=== PATIENT | male | born 1975 | race Caucasian/White ===

== ENCOUNTER 2021-10-16 10:46 | Inpatient (IN) | payer BC ==
[~2021-10-16] VITALS: Ht 177.8 cm; Wt 67.4 kg
[~2021-10-16 10:46] MED LIST: HYDMOR2 PO; MECL25 PO
[2021-10-16 11:46] LABS: BASOPHILS ABSOLUTE AUTO 0.09 K/mm3 (0.00-0.23); BASOPHILS PERCENT AUTO 2 % (0-2); EOSINOPHILS ABSOLUTE AUTO 0.09 K/mm3 (0.00-0.68); EOSINOPHILS PERCENT AUTO 2 % (0-6); Hematocrit 25.3 % (37.0-53.0); Hemoglobin 7.3 g/dL (13.5-17.5); IMMATURE GRAN ABSOLUTE AUTO 0.01 K/mm3 (0.00-0.10); IMMATURE GRAN PERCENT AUTO 0 % (0-1); LYMPHOCYTES ABSOLUTE AUTO 0.75 K/mm3 (0.84-5.20); LYMPHOCYTES PERCENT AUTO 19 % (21-46); MONOCYTES ABSOLUTE AUTO 0.45 K/mm3 (0.16-1.47); MONOCYTES PERCENT AUTO 11 % (4-13); Mean Corpuscular HGB 20.2 pg (26.0-34.0); Mean Corpuscular HGB Conc 28.9 g/dL (31.5-36.5); Mean Corpuscular Volume 70 fL (80-100); NEUTROPHILS ABSOLUTE AUTO 2.58 K/mm3 (1.96-9.15); NEUTROPHILS PERCENT AUTO 65 % (41-73); Platelet Count 80 K/mm3 (150-400); RDW Coefficient Variation 20.9 % (11.7-14.2); RDW Standard Deviation 51.7 fL (35.1-46.3); Red Blood Cell Count 3.61 M/mm3 (4.30-5.90); White Blood Cell Count 3.97 K/mm3 (4.00-11.30)
[2021-10-16 12:10] LABS: Alanine Aminotransfer (ALT/SGP 132 U/L (12-78); Albumin, Blood 3.6 g/dL (3.4-5.0); Albumin/Globulin Ratio 1.1 (0.8-1.8); Alk Phos 114 U/L (50-136); Anion Gap 13 mmol/L (6-16); Aspartate Aminotrans (AST/SGOT 146 U/L (12-37); Bilirubin, Total 0.6 mg/dL (0.1-1.0); Blood Urea Nitrogen 9 mg/dL (8-24); Bun/Creatinine Ratio 12.6 (12.0-20.0); CO2, Blood 23 mmol/L (21-32); Calcium, Blood 8.8 mg/dL (8.5-10.1); Chloride, Blood 105 mmol/L (98-108); Creatinine, Blood 0.71 mg/dL (0.60-1.20); Globulin, Blood 3.3 g/dL (2.2-4.0); Glomerular Filtration Rate >60 (60-); Glucose, Blood 77 mg/dL (70-99); Potassium, Blood 4.3 mmol/L (3.5-5.5); Sodium, Blood 141 mmol/L (136-145); Total Protein, Blood 6.9 g/dL (6.4-8.2)
[2021-10-16 17:12] LABS: International Normalized Ratio 1.03; Prothrombin Time Results 10.8 Sec (9.7-11.5)
[2021-10-16 19:42] LABS: Influenza A, PCR NEGATIVE (NEGATIVE); Influenza B, PCR NEGATIVE (NEGATIVE); Resp Syncytial Virus, PCR NEGATIVE (NEGATIVE); SARS-Cov-2 (COVID-19) PCR, MMC NEGATIVE (NEGATIVE)
[2021-10-16 20:28] LABS: Hematocrit 22.7 % (37.0-53.0); Hemoglobin 6.7 g/dL (13.5-17.5)
--- NOTE | 2021-10-16 23:45 | NUR ---
PT IS ALERT AND ORIENTED AN ADMISSION FROM THE ER, HE WAS KEPT COMFORTABLE. ASSESSMENT DONE AND DOCUMENTED. NO SKIN ISSUES NOTED. GI CONSULTED FOR THE PT. HE REVIEWED THE PT AND ALSO ORDERED 1 UNIT OF BLOOD TRANSFUSION, PLACED PT ON CLEAR LIQIUD DIET FOR NOW. HIS VITALS WERE CHECKED AND RECORDED. BLOOD INFORMED CONSENT GOTTEN, THE BLOOD WAS ISSUED AND WE STARTED THE BLOOD TRANSFUSION. PT LODGED IN NO COMPLAINT. WILL CONTINUE TO MONITOR HIM.
[2021-10-17 06:01] LABS: Alanine Aminotransfer (ALT/SGP 93 U/L (12-78); Alk Phos 85 U/L (50-136); Anion Gap 9 mmol/L (6-16); Aspartate Aminotrans (AST/SGOT 65 U/L (12-37); Bilirubin, Total 1.4 mg/dL (0.1-1.0); Blood Urea Nitrogen 12 mg/dL (8-24); Bun/Creatinine Ratio 15.3 (12.0-20.0); CO2, Blood 27 mmol/L (21-32); Calcium, Blood 8.4 mg/dL (8.5-10.1); Chloride, Blood 103 mmol/L (98-108); Creatinine, Blood 0.78 mg/dL (0.60-1.20); Ferritin, Serum 7 ng/mL (26-388); Glomerular Filtration Rate >60 (60-); Glucose, Blood 76 mg/dL (70-99); Iron Serum 58 ug/dL (65-175); Percent Saturation 15.5 % (20.0-50.0); Potassium, Blood 4.2 mmol/L (3.5-5.5); Sodium, Blood 139 mmol/L (136-145); Total Iron Binding Capacity 374 ug/dL (250-450)
[2021-10-17 08:19] LABS: Hematocrit 24.7 % (37.0-53.0); Hemoglobin 7.3 g/dL (13.5-17.5); Mean Corpuscular HGB 20.7 pg (26.0-34.0); Mean Corpuscular HGB Conc 29.6 g/dL (31.5-36.5); Mean Corpuscular Volume 70 fL (80-100); Platelet Count 59 K/mm3 (150-400); RDW Coefficient Variation 20.1 % (11.7-14.2); RDW Standard Deviation 50.8 fL (35.1-46.3); Red Blood Cell Count 3.53 M/mm3 (4.30-5.90); White Blood Cell Count 3.29 K/mm3 (4.00-11.30)
[2021-10-17 15:00] LABS: Hematocrit 25.4 % (37.0-53.0); Hemoglobin 7.4 g/dL (13.5-17.5)
[2021-10-17 15:06] LABS: IMMATURE RETIC FRACTION 26.7 % (2.3-16.0); RETICULOCYTE ABSOLUTE 0.0566 M/mm3 (0.0200-0.1100); RETICULOCYTE COUNT PERCENT 1.59 % (0.50-2.50)
--- NOTE | 2021-10-17 18:27 | NUR ---
TO SDS ADMISSION TO UNIT STARTED VSS ELEVATED BP WILL RECHECK GIVEN CONCENT TO READ TO SIGN WHEN DR IS PRESENT.
--- NOTE | 2021-10-17 18:35 | NUR ---
SHIFT SUMMARY PT HAS BEEN INDEPENDENT IN ROOM THROUGH DAY. COLONOSCOPY PREP STARTED LATE THIS MORNING AND PT COMPLETED IT AT 1355. MD NOTIFIED AND PT NPO AFTER THAT. VIEWED AND CLEAR BUT BLOODY DISCHARGE AFTER PREP COMPLETED. NO S/S OF WITHDRAWAL. NOTIFIED PT OF POTENTIAL S/S OF WITHDRAWAL SO HE COULD BE AWARE OF POTENTIAL SYMPTOMS STARTIING. HAS DENIED PAIN DURING THE DAY. DAY SURGERY HERE TO PICK PT UP AT 1815 FOR SCOPE.
--- NOTE | 2021-10-17 19:22 | NUR ---
10/17/211921 Francis Dimas PATIENT DETERMINED TO BE ASA APPROPRIATE FOR PROPOFOL SEDATION PRIOR TO START OF PROCEDURE BY DR. RUTH 3-LEAD EKG REVIEWED WITH PHYSICIAN PRIOR TO START OF PROCEDURE. Patient to ENDO 1. MONITOR INTACT WITH CONTINUOUS PULSE OXIMETRY AND INTERMITTENT BP. O2 VIA N/C INTACT THROUGHOUT SEDATION/PROCEDURE. History, Chart, Medications and Allergies reviewed before start of procedure.
--- NOTE | 2021-10-18 04:10 | NUR ---
SUMMARY PT ARRIVED BACK TO ROOM FROM PROCEDURE IN NO DISTRESS. PT DIET ADVANCED TO REGULAR PER DR RUTH. PT DENIES PAIN OR DISCOMFORT. PT HAS NO NOTED BLEEDING OR DARK STOOLS. PT CURRENTLY SLEEPING IN NO DISTRESS. CALL LIGHT IN REACH.
[2021-10-18 05:19] LABS: Hematocrit 22.3 % (37.0-53.0); Hemoglobin 6.6 g/dL (13.5-17.5); Mean Corpuscular HGB 20.8 pg (26.0-34.0); Mean Corpuscular HGB Conc 29.6 g/dL (31.5-36.5); Mean Corpuscular Volume 70 fL (80-100); Platelet Count 61 K/mm3 (150-400); RDW Standard Deviation 50.1 fL (35.1-46.3); Red Blood Cell Count 3.17 M/mm3 (4.30-5.90); White Blood Cell Count 3.52 K/mm3 (4.00-11.30)
[2021-10-18 05:55] LABS: Alanine Aminotransfer (ALT/SGP 75 U/L (12-78); Albumin, Blood 2.9 g/dL (3.4-5.0); Alk Phos 73 U/L (50-136); Anion Gap 8 mmol/L (6-16); Aspartate Aminotrans (AST/SGOT 59 U/L (12-37); Bilirubin, Total 0.5 mg/dL (0.1-1.0); Blood Urea Nitrogen 6 mg/dL (8-24); Bun/Creatinine Ratio 8.2 (12.0-20.0); CO2, Blood 26 mmol/L (21-32); Calcium, Blood 8.2 mg/dL (8.5-10.1); Chloride, Blood 105 mmol/L (98-108); Creatinine, Blood 0.73 mg/dL (0.60-1.20); Globulin, Blood 2.8 g/dL (2.2-4.0); Glomerular Filtration Rate >60 (60-); Glucose, Blood 88 mg/dL (70-99); Sodium, Blood 139 mmol/L (136-145); Total Protein, Blood 5.7 g/dL (6.4-8.2)
[2021-10-18 12:11] LABS: Hematocrit 24.8 % (37.0-53.0); Hemoglobin 7.6 g/dL (13.5-17.5)
--- NOTE | 2021-10-18 16:45 | NUR ---
PLEASANT 46 YR OLD MALE. HGB HAD DROPED FROM 7.4 YESTERDAY AFTERNOON TO 6.6 THIS AM. 1 UNIT PRB ORDERED AND ADMINISTERED. PT TOLERATED WELL. FOLLOW UP HGB OF 7.6. SECOND UNIT WAS ORDERED AND PLACED ON HOLD BY . ORDER TO MOITOR TONIGHT AND REEVALUATE NEED FOR PRB IN MORINING. ALERT AND ORIENTED X4, INDEPENDENT IN ROOM. MEDS TAKEN WHOLE. PT ON RA. CALL LIGHT WITHIN REACH.
--- NOTE | 2021-10-19 03:39 | NUR ---
SHIFT REPORT PT A&O X4. IV ACCESS IN RIGHT AC AND LEFT HAND. INDPENDENT IN ROOM TO BATHROOM. REGULAR DIET. ROOM AIR. VSS. AFTER 0600, ICE CHIPS ONLY DUE TO PLANNED EGD TO EVALUATE FOR VARICES. BLEEDING HEMMORHOIDS NOTED. HX OF ETOH ABUSE. NO SEIZURE ACTIVITY, TREMORS OR HALLUCINATIONS NOTED. NO ACUTE CHANGES OVERNIGHT.
[2021-10-19 05:24] LABS: BASOPHILS ABSOLUTE AUTO 0.07 K/mm3 (0.00-0.23); BASOPHILS PERCENT AUTO 2 % (0-2); EOSINOPHILS ABSOLUTE AUTO 0.21 K/mm3 (0.00-0.68); EOSINOPHILS PERCENT AUTO 5 % (0-6); Hematocrit 25.5 % (37.0-53.0); Hemoglobin 7.7 g/dL (13.5-17.5); IMMATURE GRAN ABSOLUTE AUTO 0.01 K/mm3 (0.00-0.10); IMMATURE GRAN PERCENT AUTO 0 % (0-1); LYMPHOCYTES ABSOLUTE AUTO 1.33 K/mm3 (0.84-5.20); LYMPHOCYTES PERCENT AUTO 28 % (21-46); MONOCYTES ABSOLUTE AUTO 0.54 K/mm3 (0.16-1.47); MONOCYTES PERCENT AUTO 12 % (4-13); Mean Corpuscular HGB 22.1 pg (26.0-34.0); Mean Corpuscular HGB Conc 30.2 g/dL (31.5-36.5); Mean Corpuscular Volume 73 fL (80-100); NEUTROPHILS ABSOLUTE AUTO 2.54 K/mm3 (1.96-9.15); NEUTROPHILS PERCENT AUTO 54 % (41-73); Platelet Count 76 K/mm3 (150-400); RDW Coefficient Variation 20.4 % (11.7-14.2); RDW Standard Deviation 53.1 fL (35.1-46.3); Red Blood Cell Count 3.49 M/mm3 (4.30-5.90)
[2021-10-19 06:33] LABS: Alanine Aminotransfer (ALT/SGP 84 U/L (12-78); Albumin, Blood 2.9 g/dL (3.4-5.0); Alk Phos 78 U/L (50-136); Anion Gap 7 mmol/L (6-16); Aspartate Aminotrans (AST/SGOT 61 U/L (12-37); Bilirubin, Total 0.5 mg/dL (0.1-1.0); Blood Urea Nitrogen 10 mg/dL (8-24); Bun/Creatinine Ratio 11.5 (12.0-20.0); CO2, Blood 25 mmol/L (21-32); Calcium, Blood 8.7 mg/dL (8.5-10.1); Chloride, Blood 109 mmol/L (98-108); Creatinine, Blood 0.87 mg/dL (0.60-1.20); Glomerular Filtration Rate >60 (60-); Glucose, Blood 101 mg/dL (70-99); Sodium, Blood 141 mmol/L (136-145); Total Protein, Blood 5.9 g/dL (6.4-8.2)
[2021-10-19 14:28] LABS: Hematocrit 25.6 % (37.0-53.0); Hemoglobin 7.8 g/dL (13.5-17.5)
--- NOTE | 2021-10-19 14:41 | NUR ---
PT OFF THE FLOOR FOR PROCEDURE. TRANSFERED FOR EGD, IV SALINE LOCKED.
--- NOTE | 2021-10-19 14:57 | NUR ---
PT ARRIVED IN SDS WITH TWO IV'S. RIGHT FOREARM IV APPEARS TO BE INFLAMED, EDEMATOUS, WITH DARK PURPLE AND RED BRUISING THAT SPANS 3 INCHES IN LENGTH AND 2 INCHES WIDE. THE SITE IS WARM TO THE TOUCH AND THERE WAS DRIED SEROSANGUINEOUS FLUID AT THE BASE OF THE WINDOW BANDAGE. THE WINDOW BANDAGE WAS ALSO WET NEAR THE HUB OF THE IV AND LIFTING. PT REPORTS A 2/10 CONSTANT BURNING PAIN, AND STATES PAIN UPON TOUCH. THIS IV WAS REMOVED.
--- NOTE | 2021-10-19 15:25 | NUR ---
DR. RUTH SHOWN PATIENT'S INFLITRATION SITE WHERE IV ON RIGHT FOREARM WAS REMOVED. PT TALKED ABOUT HOW HE ALERTED TWO OTHER NURSES THAT "SOMETHING WAS WRONG" AND THAT HIS RIGHT ARM IV HURT AND STATED HE NOTICED A "BUBBLE" FORMING NEAR THE INSERTION SITE THAT HE THOUGHT WAS ABNORMAL.
--- NOTE | 2021-10-19 16:53 | NUR ---
DAY SHIFT SUMMARY. PLEASANT 46 YR OLD MALE. INDEPENDENT IN ROOM. CONTIUIOUS FLUIDS RUNNING TODAY. EGD SCHEDULED. PT CURRENTLY STILL OFF FLOOR FOR EGD. NPO PRIOR TO PROCEDURE. ROOM AIR AND MEDS WHOLE.
--- NOTE | 2021-10-19 18:44 | NUR ---
10/19/21 1844 Francis Dimas PATIENT DETERMINED TO BE ASA APPROPRIATE FOR PROPOFOL SEDATION PRIOR TO START OF PROCEDURE BY DR. RUTH. E
--- NOTE | 2021-10-19 19:38 | NUR ---
ASSUMPTION OF CARE 1900: PT RETURNED TO FLOOR FROM OR PROCEDURE, EGD. PT AMBULATING WITH STAND BY ASSISTANCE FROM 1 STAFF MEMBER FROM OR [facility] TO MEDICAL BED. THIS RN RECEIVED REPORT FROM DAY SURGERY NURSE. PT RECEIVED 200 MG PROPOFOL, 2 MG VERSED AND 350 ML OF LACTATED RINGERS. OK TO RESUME REGULAR DIET. PT IS AWAKE/ALERT, EATING TURKEY SANDWICH AND SPEAKING TO SPOUSE ON THE PHONE. BED IN LOWEST POSITION, CALL LIGHT WTIHIN REACH. WILL CONTINUE TO MONITOR.
--- NOTE | 2021-10-20 04:46 | NUR ---
SHIFT SUMMARY PT ADMITTED FOR ACUTE GI BLEED. HAD EGD COMPLETED YESTERDAY. PLAN IS TO D/C TO HOME TODAY. IV ACCESS IN LEFT WRIST, INFUSING LACTATED RINGERS. INDEPENDENT IN ROOM TO BATHROOM. A&O X4. REGULAR DIET. BED IN LOWEST POSITION, CALL LIGHT WITHIN REACH. NO ACUTE CHANGES THIS SHIFT. PT REMAINED AWAKE UNTIL 0200, WATCHING TELEVISION. NO COMPLAINTS OF PAIN OR DISCOMFORT. EAGER TO D/C HOME.
[2021-10-20 04:59] LABS: Hematocrit 26.6 % (37.0-53.0); Hemoglobin 7.8 g/dL (13.5-17.5)
[2021-10-20] MEDS ORDERED: NICO21TP TOP (11:19)
[2021-10-20] MEDS ORDERED: FERSU300 PO (11:20)
[2021-10-20] MEDS ORDERED: MIRALAX17 GM PO (11:21)
[2021-10-20] MEDS ORDERED: ACAMPROSATE CA333 MG PO (13:03)
--- NOTE | 2021-10-20 14:17 | NUR ---
DISCHARGE PATIENT TRANSPORTED VIA WHEELCHAIR TO PRIVATE VEHICLE. DISCHARGE INFORMATION EXPLAINED TO PATIENT. PATIENT STATED UNDERSTANDING. PACKET SENT WITH PATIENT. IV REMOVED WITHOUT DIFFICULTY. BELONGINGS SENT WITH PATIENT. MEDICATIONS FAXED TO PERFERRED PHARMACY. FOLLOW UP WITH GI AND PCP TO BE CALLED IN BY PATIENT.
== END 2021-10-20 14:09 | disposition home or self-care (01) | DRG 394 ==
LOC: ER 10:46 → MEDS 10:47 → ERHOLD 10:47 → MEDS 19:46
PROVIDERS: Emergency Medicine; Family Medicine; Internal Medicine Gastroenterology; Physician Assistant; ADMIT Hospitalist
PROC: 30233N1 Transfusion of Nonautologous Red Blood Cells into Peripheral Vein, Percutaneous Approach (ICD-10-PCS; principal; 2021-10-17 16:30)
PROC: 0DJD8ZZ Inspection of Lower Intestinal Tract, Via Natural or Artificial Opening Endoscopic (ICD-10-PCS; 2021-10-18)
PROC: 0DB68ZX Excision of Stomach, Via Natural or Artificial Opening Endoscopic, Diagnostic (ICD-10-PCS; 2021-10-20)
DX: K64.8 Other hemorrhoids (principal); D62 Acute posthemorrhagic anemia; D61.818 Other pancytopenia; J45.909 Unspecified asthma, uncomplicated; F10.20 Alcohol dependence, uncomplicated; K44.9 Diaphragmatic hernia without obstruction or gangrene; K70.0 Alcoholic fatty liver; Z20.822 Contact with and (suspected) exposure to COVID-19; Z88.5 Allergy status to narcotic agent; Z88.8 Allergy status to other drugs, medicaments and biological substances; Z98.890 Other specified postprocedural states; K25.9 Gastric ulcer, unspecified as acute or chronic, without hemorrhage or perforation
CPT/HCPCS: 0241U; 36415; 36430; 76705; 80053; 82272; 82607; 82728; 82746; 83010; 83540; 83550; 83615; 83735; 85014; 85018; 85025; 85027; 85045; 85610; 85730; 86850; 86900; 86901; 86923; 88305; 88342; 96374; 99284; A9270; G0378; J2250; J2704; J2916; J3411; J3475; J7042; J7050; J7120; P9016